=== PATIENT | female | born 1970 | race Caucasian/White ===

== ENCOUNTER 2016-11-11 21:01 | Emergency (ER) | payer MEDICAID ==
[~2016-11-11] VITALS: Ht 157.5 cm; Wt 74.0 kg
[2016-11-11 21:03] VITALS: Ht 157.5 cm; Wt 74.0 kg
[2016-11-11] MEDS ORDERED: SOD CHLORIDE 0.9% 1,000 ML IV STA (21:38)
[2016-11-11] MEDS ORDERED: morphine 4 MG/ML VIAL IV STA (21:38)
[2016-11-11] MEDS ORDERED: ONDANSETRON 4 MG INJ IV STA ×2 (21:38→22:58)
--- NOTE | 2016-11-11 21:48 | ERD ---
ER Documentation Chief Complaint Date/Time DATE: 11/11/16 TIME: 21:45 Chief Complaint right sided abd pain radaiting to back x 2 days HPI 46 yo female comes in with intermittent right-sided flank pain that started yesterday. Is described as sharp, moderate, radiating from the right flank to the right upper quadrant and right lower abdomen. She states that she has frequent urination however no fevers or chills. She reports nonbloody nonbilious emesis. ROS All systems reviewed and are negative except as per history of present illness. Medications Home Meds Active Scripts Tamsulosin Hcl* (Flomax*) 0.4 Mg Cap.er.24h, 0.4 MG PO BID, #30 CAP Prov:EMILY GALICIA PA-C 11/11/16 Hydrocodone/Acetaminophen ([place] 5-325 Tablet) 1 Each Tablet, 1 TAB PO Q6H Y for PAIN, #15 TAB Prov:EMILY GALICIA PA-C 11/11/16 Ibuprofen* (Motrin*) 600 Mg Tab, 600 MG PO Q6, #30 TAB Prov:EMILY GALICIA PA-C 11/11/16 Allergies Allergies: Coded Allergies: No Known Drug Allergy (Verified Allergy, Unknown, 01/28/13) PMhx/Soc History of Surgery: Yes (GALLBLADDER STONES REMOVED; C SECTION) Anesthesia Reaction: No Hx Neurological Disorder: No Hx Respiratory Disorders: No Hx Cardiac Disorders: No Hx Psychiatric Problems: No Hx Miscellaneous Medical Probl: Yes (KIDNEY STONES) Hx Alcohol Use: No Hx Substance Use: No Hx Tobacco Use: No Physical Exam Vitals Vital Signs Date Time Temp Pulse Resp B/P Pulse Ox O2 Delivery O2 Flow Rate FiO2 11/11/16 23:02 82 16 144/72 99 11/11/16 21:03 98.2 86 20 148/93 98 Physical Exam General: Well-developed, well-nourished. The patient appears in no acute distress. HEENT: Head is normocephalic, atraumatic. No scleral icterus. Neck: Supple. Nontender. Lungs: Clear to auscultation. Normal air movement. Heart: Regular rate and rhythm. S1 and S2 are normal. No murmurs, gallops, or rubs. Abdomen: Soft, tender in the right midabdomen nondistended. Bowel sounds are normoactive. No McBurney's tenderness. Extremities: No clubbing or cyanosis. Normal pulses. Moving extremities x 4. No weakness. Neurologic: Alert and oriented 3. No focal deficits. Skin: Normal turgor. No rash or lesions. Result Diagram: 11/11/16219911/11/162199 Results 24 hrs Laboratory Tests Test 11/11/16 22:00 11/11/16 22:15 White Blood Count 10.010^3/ul Red Blood Count 4.5910^6/ul Hemoglobin 13.1g/dl Hematocrit 38.9% Mean Corpuscular Volume 84.7fl Mean Corpuscular Hemoglobin 28.5pg Mean Corpuscular Hemoglobin Concent 33.7g/dl Red Cell Distribution Width 13.2% Platelet Count 96640^3/UL Mean Platelet Volume 10.0fl Neutrophils % 61.2% Lymphocytes % 28.9% Monocytes % 7.7% Eosinophils % 1.7% Basophils % 0.1% Nucleated Red Blood Cells % 0.0/100WBC Neutrophils # 6.110^3/ul Lymphocytes # 2.910^3/ul Monocytes # 0.810^3/ul Eosinophils # 0.210^3/ul Basophils # 0.010^3/ul Nucleated Red Blood Cells # 0.010^3/ul Sodium Level 142mmol/L Potassium Level 3.6mmol/L Chloride Level 102mmol/L Carbon Dioxide Level 28mmol/L Anion Gap 16 Blood Urea Nitrogen 16mg/dl Creatinine 0.74mg/dl Glucose Level 114mg/dl Calcium Level 9.1mg/dl Total Bilirubin 1.4mg/dl Direct Bilirubin 0.00mg/dl Indirect Bilirubin 1.4mg/dl Aspartate Amino Transf (AST/SGOT) 35IU/L Alanine Aminotransferase (ALT/SGPT) 56IU/L Alkaline Phosphatase 79IU/L Total Protein 7.6g/dl Albumin 4.1g/dl Globulin 3.50g/dl Albumin/Globulin Ratio 1.17 Lipase 62U/L Urine Color RED Urine Clarity BLOODY Urine pH 6.5 Urine Specific [place] 1.020 Urine Ketones TRACE Urine Nitrite NEGATIVE Urine Bilirubin 1+ Urine Ictotest NEGATIVE Urine Urobilinogen 1.0 E.U./dL Urine Leukocyte Esterase NEGATIVE Urine Microscopic RBC >200/HPF Urine Microscopic WBC 2-5/HPF Urine Squamous Epithelial Cells MANY Urine Bacteria FEW Urine Hemoglobin 3+ Urine Glucose NEGATIVE% Urine Total Protein 2+ Current Medications Medications (Trade) Dose Ordered Sig/Mariia Route PRN Reason Start Time Stop Time Status Last Admin Dose Admin Sodium Chloride (NS) 1,000 ml @ 1,000 mls/hr Q1H STAT IV 11/11/16 21:38 11/11/16 22:37 DC 11/11/16 22:03 Morphine Sulfate (morphine) 4 mg ONCE STAT IV 11/11/16 21:38 11/11/16 21:40 DC 11/11/16 22:03 Ondansetron HCl (Zofran Inj) 4 mg ONCE STAT IV 11/11/16 21:38 11/11/16 21:40 DC 11/11/16 22:03 Hydromorphone HCl (Dilaudid) 0.5 mg ONCE STAT IV 11/11/16 22:58 11/11/16 22:59 DC 11/11/16 23:04 Ondansetron HCl (Zofran Inj) 4 mg ONCE STAT IV 11/11/16 22:58 11/11/16 22:59 DC 11/11/16 23:03 Ketorolac Tromethamine (Toradol) 30 mg ONCE STAT IV 11/11/16 23:16 11/11/16 23:17 DC 11/11/16 23:28 PROCEDURE: CT abdomen and pelvis without intravenous contrast. CLINICAL INDICATION: Right flank pain and right lower quadrant pain. TECHNIQUE: CT of the abdomen/pelvis was performed utilizing axial images with reconstructions in sagittal and coronal planes. The administered radiation dose is CTDI 16 mGy, DLP 848 mGy-cm. COMPARISON: 02/02/2013 FINDINGS: Visualized Chest: The visualized lung bases are clear. Abdomen: The spleen, pancreas, and adrenal glands are unremarkable. The liver is diffusely decreased in attenuation, compatible with hepatic steatosis. There is moderate right hydronephrosis and hydroureter secondary to a pair of calculi within the right distal ureter at the level of the pelvic inlet, measuring 4 x 7 mm and 4 x 6 mm. The left kidney is without hydronephrosis or urinary calculi. There is no evidence of bowel obstruction. The appendix is normal. No intra- abdominal free air is seen. Prior cholecystectomy is noted. There is no evidence of intra-abdominal adenopathy or free fluid. Pelvis: There is no evidence of pelvic adenopathy. The uterus and ovaries are without enlargement. The urinary bladder is unremarkable. There is no pelvic free fluid. Osseous structures: Unremarkable. IMPRESSION: Moderate right-sided obstructive uropathy secondary to a pair of calculi in the right distal ureter at the level of the pelvic inlet. RPTAT: HIKT .Simone Wyatt MD, MD Date Time Electronically viewed and signed by .Simone Wyatt MD, MD on 11/11/2016 23:12 .T/ Procedures/MDM ED course: Patient had a line established, blood and urine were obtained. She was given morphine 4 mg Zofran 4 mg IV as well as normal saline 1 L. She continues to complain of pain after the morphine, she we gave her Dilaudid 0.5 mg and Zofran 4 mg IV as well as Toradol 30 mg IV. The patient's abdominal pain was reexamined. Patient was sitting comfortably with improved pain. Patient was not in any distress. MDM: 46-year-old female presents with right-sided flank pain intermittent since yesterday, hematuria was noted by nurse with a urine sample that had hematuria. Patient presents with ureteral colic, no evidence of renal insufficiency, septic kidney stones or associated leukocytosis or fever. Her pain is controlled in the emergency department, with the addition of Toradol. She was given instructions to recheck with a urologist within the next week. There is no acute hepatobiliary process, pyelonephritis, patient's vitals are stable pain is controlled and she will be discharged home, stable for outpatient management. Departure Diagnosis: Primary Impression: Kidney stone on right side Condition: EMILY Marquez PA-C Nov 11, 2016 21:48
[2016-11-11 22:12] LABS: ADD SCAN DIFF NO
[2016-11-11 22:17] LABS: BASOPHILS % 0.1 % (0.0-2.0); EOSINOPHILS # 0.2 10^3/ul (0.0-0.5); EOSINOPHILS % 1.7 % (0.0-7.0); HEMATOCRIT 38.9 % (37.0-47.0); HEMOGLOBIN 13.1 g/dl (12.0-16.0); LYMPHOCYTES # 2.9 10^3/ul (0.8-2.9); LYMPHOCYTES % 28.9 % (15.0-51.0); MEAN CORPUSCULAR HEMOGLOBIN 28.5 pg (29.0-33.0); MEAN CORPUSCULAR HGB CONC 33.7 g/dl (32.0-37.0); MEAN CORPUSCULAR VOLUME 84.7 fl (82.0-101.0); MONOCYTE # 0.8 10^3/ul (0.3-0.9); MONOCYTES % 7.7 % (0.0-11.0); NEUTROPHIL # 6.1 10^3/ul (1.6-7.5); NEUTROPHILS % 61.2 % (39.0-77.0); PLATELET COUNT 228 10^3/UL (140-415); RED BLOOD COUNT 4.59 10^6/ul (4.20-5.40); RED CELL DISTRIBUTION WIDTH 13.2 % (11.5-14.5)
[2016-11-11 22:30] LABS: ALBUMIN 4.1 g/dl (3.3-4.9)
[2016-11-11 22:31] LABS: POTASSIUM 3.6 mmol/L (3.5-5.1)
[2016-11-11 22:33] LABS: BILIRUBIN,INDIRECT 1.4 mg/dl (0-1.1); BILIRUBIN,TOTAL 1.4 mg/dl (0.2-1.3); CREATININE 0.74 mg/dl (0.44-1.00)
[2016-11-11 22:34] LABS: ALBUMIN/GLOBULIN RATIO 1.17; CALCIUM 9.1 mg/dl (8.4-10.2); TOTAL PROTEIN 7.6 g/dl (6.1-8.1)
[2016-11-11] MEDS ORDERED: HYDROmorphONE 1 MG/ML SYG IV STA (22:58)
[2016-11-11 23:02] VITALS: BP 144/72; PULSE 82; RESP 16
[2016-11-11 23:07] LABS: ADD UMIC YES; URINE BILIRUBIN (Dip) 1+ (NEGATIVE); URINE BLOOD (Dip) 3+ (NEGATIVE); URINE COLOR RED (YELLOW); URINE GLUCOSE (Dip) NEGATIVE (NEGATIVE); URINE KETONES (Dip) TRACE (NEGATIVE); URINE LEUKOCYTE ESTERASE (Dip) NEGATIVE (NEGATIVE); URINE NITRITE (Dip) NEGATIVE (NEGATIVE); URINE TOTAL PROTEIN (Dip) 2+ (NEGATIVE); URINE UROBILINOGEN (Dip) 1.0 E.U./dL (0.1-1.0)
--- NOTE | 2016-11-11 23:12 | RADRPT ---
PROCEDURE: CT abdomen and pelvis without intravenous contrast. CLINICAL INDICATION: Right flank pain and right lower quadrant pain. TECHNIQUE: CT of the abdomen/pelvis was performed utilizing axial images with reconstructions in s agittal and coronal planes. The administered radiation dose is CTDI 16 mGy, DLP 848 mGy-cm. COMPARISON: 02/02/2013 FINDINGS: Visualized Chest: The visualized lung bases are clear. Abdomen: The spleen, pancreas, and adrenal glands are unremarkable. The liver is diffusely decreased in at tenuation, compatible with hepatic steatosis. There is moderate right hydronephrosis and hydroureter secondary to a pair of calculi within the rig ht distal ureter at the level of the pelvic inlet, measuring 4 x 7 mm and 4 x 6 mm. The left kidney is without hydronephrosis or urinary calculi. There is no evidence of bowel obstruction. The appendix is normal. No intra-abdominal free air is seen. Prior cholecystectomy is noted. There is no evidence of intra-abdominal adenopathy or free fluid. Pelvis: There is no evidence of pelvic adenopathy. The uterus and ovaries are without enlargement. The uri nary bladder is unremarkable. There is no pelvic free fluid. Osseous structures: Unremarkable. IMPRESSION: Moderate right-sided obstructive uropathy secondary to a pair of calculi in the right distal ureter at the level of the pelvic inlet. RPTAT: HIKT .Simone Wyatt MD, Date Time Electronically viewed and signed by .Simone Wyatt MD, on 11/11/2016 23:12 .T/
[2016-11-11] MEDS ORDERED: KETOROLAC 30 MG INJ IV STA (23:16)
[2016-11-11 23:20] LABS: ICTOTEST NEGATIVE (NEGATIVE)
[2016-11-11 23:21] LABS: BACTERIA,URINE FEW; SQUAMOUS EPITHELIAL CELL,UR MANY; URINE RBCS >200 /HPF (0)
[2016-11-11] MEDS ORDERED: IBUP-1542 PO (23:37)
[2016-11-11] MEDS ORDERED: TAMS-14 PO (23:38)
[2016-11-11] MEDS ORDERED: HYDR-906 PO (23:38)
== END 2016-11-11 23:54 | disposition home or self-care (01) ==
LOC: FTE 21:01
DX: N20.0 Calculus of kidney (principal); R11.10 Vomiting, unspecified
CPT/HCPCS: 36415; 74176; 80053; 81001; 81003; 83690; 85025; 96374; 96375; 96376; J1170; J1885; J2270; J2405; J7030; Z7502

== ENCOUNTER 2017-05-20 12:17 | Emergency (ER) | payer MEDICAID ==
[~2017-05-20] VITALS: Ht 157.5 cm; Wt 74.5 kg
[~2017-05-20 12:17] MED LIST: HYDR-906 PO; IBUP-1542 PO; TAMS-14 PO
[2017-05-20 12:21] VITALS: Ht 157.5 cm; Wt 74.5 kg
[2017-05-20] MEDS ORDERED: ACETAMINOPHEN 500 MG TAB PO STA (12:50)
[2017-05-20] MEDS ORDERED: ONDANSETRON (ODT) 4 MG TAB ODT STA (12:50)
[2017-05-20 13:30] LABS: ADD UMIC YES; UR ASCORBIC ACID NEGATIVE (NEGATIVE); UR BACTERIA FEW /HPF (NONE SEEN); UR BILIRUBIN (Dip) NEGATIVE (NEGATIVE); UR BLOOD (Dip) 2+ mg/dL (NEGATIVE); UR CLARITY CLEAR (CLEAR); UR COLOR STRAW (YELLOW); UR GLUCOSE (Dip) NEGATIVE (NEGATIVE); UR KETONES (Dip) NEGATIVE (NEGATIVE); UR LEUKOCYTE ESTERASE (Dip) NEGATIVE Leu/ul (NEGATIVE); UR NITRITE (Dip) NEGATIVE (NEGATIVE); UR RBC 1 /HPF (0-5); UR SPECIFIC GRAVITY (Dip) 1.003 (1.003-1.030); UR SQUAMOUS EPITHELIAL CELL FEW /HPF (FEW); UR TOTAL PROTEIN (Dip) NEGATIVE (NEGATIVE); UR UROBILINOGEN (Dip) NEGATIVE (NEGATIVE)
--- NOTE | 2017-05-20 13:34 | ERD ---
ER Documentation Chief Complaint Date/Time DATE: 05/20/17 TIME: 13:32 Chief Complaint Pt with painful urination, R flank pain , and frequency X 2-3 days. HPI This is a 46-year-old female who presents the emergency department today complaining of burning and pain with urination for the past couple of days. States that she feels some pressure when she urinates. States she also has rectal pressure. States she has back pain and pain into her right buttock. States that when she goes to the bathroom she only goes a small amount.Denies any fevers or chills, vomiting. ROS All systems reviewed and are negative except as per history of present illness. Medications Home Meds Active Scripts Naproxen* (Naprosyn*) 500 Mg Tablet, 500 MG PO BID Y for PAIN AND/OR INFLAMMATION, #30 TAB Prov:MARYAM FARAH PA-C 05/20/17 Tramadol HCl (Tramadol HCl) 50 Mg Tablet, 50 MG PO Q4 Y for PAIN, #20 TAB Prov:MARYAM FARAH PA-C 05/20/17 Clotrimazole* (Clotrimazole* AF) 1% - 30 Gm Cream.gm., 1 APPLIC TOP BID for 7 Days, #1 TUB Prov:MARYAM FARAH PA-C 05/20/17 Fluconazole* (Diflucan*) 150 Mg Tablet, 150 MG PO ONCE, #1 TAB Prov:MARYAM FARAH PA-C 05/20/17 Docusate Sodium* (Colace*) 100 Mg Capsule, 100 MG PO TID, #30 CAP Prov:MARYAM FARAH PA-C 05/20/17 Polyethylene Glycol* (Miralax*) 17 Gm Powd.pack, 17 GM PO DAILY, #30 PACKET Prov:MARYAM FARAH PA-C 05/20/17 Tamsulosin Hcl* (Flomax*) 0.4 Mg Cap.er.24h, 0.4 MG PO BID, #30 CAP Prov:EMILY GALICIA PA-C 11/11/16 Hydrocodone/Acetaminophen ([place] 5-325 Tablet) 1 Each Tablet, 1 TAB PO Q6H Y for PAIN, #15 TAB Prov:EMILY GALICIA PA-C 3/24/17 Ibuprofen* (Motrin*) 600 Mg Tab, 600 MG PO Q6, #30 TAB Prov:EMILY GALICIA PA-C 11/11/16 Allergies Allergies: Coded Allergies: No Known Drug Allergy (Verified Allergy, Unknown, 01/28/13) PMhx/Soc History of Surgery: Yes (GALLBLADDER STONES REMOVED; C SECTION) Anesthesia Reaction: No Hx Neurological Disorder: No Hx Respiratory Disorders: No Hx Cardiac Disorders: No Hx Psychiatric Problems: No Hx Miscellaneous Medical Probl: Yes (KIDNEY STONES) Hx Alcohol Use: No Hx Substance Use: No Hx Tobacco Use: No Physical Exam Vitals Vital Signs Date Time Temp Pulse Resp B/P Pulse Ox O2 Delivery O2 Flow Rate FiO2 05/20/17 12:21 98.1 67 18 135/82 97 Physical Exam Const: obese, NAD Head: Atraumatic Eyes: Normal Conjunctiva ENT: Normal External Ears, Nose and Mouth. Neck: Full range of motion..~ No meningismus. Resp: Clear to auscultation bilaterally Cardio: Regular rate and rhythm, no murmurs Abd: Soft, non tender, non distended. Normal bowel sounds : To exam no evidence of internal/external hemorrhoids. Stool in the rectal vault. Vaginal exam shows evidence of external and internal yeast. Skin: No petechiae or rashes Back: No midline tenderness. Bilateral paraspinal tenderness. Ext: No cyanosis, or edema Neur: Awake and alert Psych: Normal Mood and Affect Results 24 hrs Laboratory Tests Test 05/20/17 12:47 Urine Color STRAW Urine Clarity CLEAR Urine pH 6.0 Urine Specific [place] 1.003 Urine Ketones NEGATIVEmg/dL Urine Nitrite NEGATIVEmg/dL Urine Bilirubin NEGATIVEmg/dL Urine Urobilinogen NEGATIVEmg/dL Urine Leukocyte Esterase NEGATIVELeu/ul Urine Microscopic RBC 1/HPF Urine Microscopic WBC 1/HPF Urine Squamous Epithelial Cells FEW/HPF Urine Bacteria FEW/HPF Urine Hemoglobin 2+mg/dL Urine Glucose NEGATIVEmg/dL Urine Total Protein NEGATIVEmg/dl Current Medications Medications (Trade) Dose Ordered Sig/Mariia Route PRN Reason Start Time Stop Time Status Last Admin Dose Admin Ondansetron HCl (Zofran Odt) 4 mg ONCE STAT ODT 05/20/17 12:50 05/20/17 12:51 DC 05/20/17 12:55 Acetaminophen (Tylenol Tab) 500 mg ONCE STAT PO 05/20/17 12:50 05/20/17 12:51 DC 05/20/17 12:55 Ketorolac Tromethamine (Toradol) 30 mg ONCE STAT IM 05/20/17 13:59 05/20/17 14:00 DC 05/20/17 14:08 Procedures/MDM Is a 46-year-old female who presents emergency department today with multiple complaints. Patient indicated she had back pain, pain with urination and back pain that went into her right leg. Upon review of patient's medical records patient was seen here in October 2016 for a kidney stone. Given patient's complaints of dysuria and back pain I did obtain a UA and urine test UA is negative for infection, hematuria. Urine was sent for gonorrhea and chlamydia. Patient is afebrile and otherwise well-appearing. I have low suspicion for pyelonephritis or nephrolithiasis. No loss of bowel or bladder control have low suspicion for cauda equina or abscess. Patient was initially given Tylenol here in the emergency department and pain persisted and she was therefore given a Toradol injection. Patient has no abdominal pain on physical exam and have low suspicion for acute surgical abdomen. There is no evidence of internal/ external hemorrhoids on patient's physical exam as patient was complaining of rectal pain. She is given a prescription for MiraLAX and Colace as she had indicated that when she goes to the bathroom she only goes a very small amount. I did also do a pelvic exam that showed evidence of external and internal yeast. This may be the cause of the patient's dysuria. Patient was also given a prescription for Chlortrimazole and Diflucan. I asked patient why she had nausea or vomiting and she indicated that when she has pain she gets nauseated. She was given a prescription for tramadol, Naprosyn for her back pain for home. At this time the patient is stable for discharge and outpatient management. Patient should follow up with their PCP in the next 1-2 days. They may return to the emergency department sooner for any persistent or worsening of symptoms. Patient and daughter understood and agreed with the plan. Departure Diagnosis: Primary Impression: Genitourinary symptoms Additional Impression: Back pain Back pain location: low back pain Chronicity: unspecified Back pain laterality: bilateral Sciatica presence: with sciatica Sciatica laterality: sciatica of right side Qualified Code: M54.41 - Bilateral low back pain with right-sided sciatica, unspecified chronicity Condition: MARYAM Copeland PA-C May 20, 2017 13:34
[2017-05-20] MEDS ORDERED: KETOROLAC 30 MG INJ IM STA (13:59)
[2017-05-20] MEDS ORDERED: POLY17PO6 PO (14:20)
[2017-05-20] MEDS ORDERED: DOCU-144 PO (14:20)
[2017-05-20] MEDS ORDERED: FLUC150T17 PO (14:21)
[2017-05-20] MEDS ORDERED: CLOT30CR24 TOP (14:21)
[2017-05-20] MEDS ORDERED: NAPR-260 PO (14:22)
[2017-05-20] MEDS ORDERED: TRAM50TA2 PO (14:22)
[2017-05-20 14:46] VITALS: BP 132/78; PULSE 66; RESP 18; TEMP 98.1
== END 2017-05-20 14:46 | disposition home or self-care (01) ==
LOC: FTE 12:17
DX: R30.0 Dysuria (principal); M54.41 Lumbago with sciatica, right side
CPT/HCPCS: 81001; 87591; 96372; J1885; Z7502; Z7610